=== PATIENT | female | born 1990 | race Caucasian/White ===

== ENCOUNTER 2017-03-31 10:41 | Emergency (ER) | payer BC ==
[~2017-03-31 10:41] MED LIST: IBUPROFEN800 M1 PO; PAIN RELIEF EX500 MG PO; PERCOCET 5-3251 EACH PO; PRENATAL VITAM1 EAC5 PO; TYLENOL WITH C1 EACH PO
[2017-03-31 11:37] LABS: URINE APPEARANCE HAZY; URINE BILIRUBIN NEGATIVE (NEG); URINE BLOOD MODERATE (NEG); URINE COLOR YELLOW; URINE GLUCOSE (UA) NEGATIVE (NEG); URINE KETONE NEGATIVE (NEG); URINE LEUKOCYTE ESTERASE NEGATIVE (NEG); URINE NITRITE NEGATIVE (NEG); URINE PROTEIN NEGATIVE (NEG)
[2017-03-31 11:48] LABS: BASO % 0.1 % (0-2); EOS % 0.8 % (0-7); EOSINOPHIL ABSOLUTE COUNT 0.1 tho/cmm (0.0-0.7); HCT-HEMATOCRIT 40.3 % (34.0-49.0); HGB-HEMOGLOBIN 13.9 gm/dl (12.0-15.5); IMMATURE GRANULOCYTES ABSOLUTE 0.02 tho/cmm (0-0.03); IMMATURE GRANULOCYTES PERCENT 0.2 % (0-0.3); LYMPH % 27.9 % (20-45); LYMPH ABSOLUTE COUNT 2.7 tho/cmm (0.8-4.5); MCH (MEAN CORPUSCULAR HGB) 31.8 pg (28.0-32.0); MCHC MEAN CORPUSCULAR HGB CONC 34.5 % (32.0-36.0); MCV (MEAN CELL VOLUME) 92.2 fl (82.0-96.0); MEAN PLATELET VOLUME 8.9 cmc (9.4-12.4); MONO % 7.2 % (0-12); MONOCYTE ABSOLUTE COUNT 0.7 tho/cmm (0.0-1.2); NEUTROPHIL ABSOLUTE COUNT 6.1 tho/cmm (1.6-8.0); NEUTROPHIL-AUTOMATED 6.1 tho/cmm (1.6-8.0); NEUTROPHILS % 63.8 % (40-80); PLATELET COUNT 327 tho/cmm (150-450); RED BLOOD COUNT 4.37 mil/cmm (4.00-5.20); RED CELL DISTRIBUTION WIDTH 12.5 % (12.4-16.4); WHITE BLOOD COUNT 9.5 tho/cmm (4.0-10.0)
[2017-03-31 12:01] LABS: ALBUMIN 3.9 g/dl (3.5-5.0); ALKALINE PHOSPHATASE 37 U/L (33-138); ALT/SGPT 25 U/L (12-78); ANION GAP 13 mmol/L (0-20); AST/SGOT 15 U/L (10-40); BILIRUBIN,TOTAL 0.4 mg/dl (0-1.5); BLOOD UREA NITROGEN 12 mg/dl (6-24); CALCIUM 9.2 mg/dl (8.5-10.5); CARBON DIOXIDE-VENOUS 28 mmol/L (22-32); CHLORIDE 105 mmol/l (96-110); CREATININE 0.91 mg/dl (0.50-1.10); GLUCOSE 100 mg/dL (70-110); LIPASE 101 U/L (73-393); POTASSIUM 3.9 mmol/L (3.7-5.1); SODIUM 142 mmol/L (135-145); eGFR VALUE FOR BLACK >90 mL/Min
== END 2017-03-31 13:05 ==
LOC: EDMED 10:41
PROVIDERS: Nurse Practitioner Family
DX: R10.13 Epigastric pain (principal); Z88.0 Allergy status to penicillin; Z90.81 Acquired absence of spleen